=== PATIENT | male | born 1960 | race Hispanic/Latino ===

== ENCOUNTER 2018-03-07 15:44 | Emergency (ER) | payer OTHER ==
[2018-03-07 15:51] VITALS: RESP 18
[2018-03-07] MEDS ORDERED: Sodium Chloride 0.9% 1,000 ML IV STA (16:04)
[2018-03-07 16:43] LABS: BASO # 0.1 K/uL (0.0-0.2); BASO % 0.7 % (0.0-2.0); EOS # 0.1 K/uL (0.0-0.7); EOS % 1.7 % (0.0-4.0); HEMOGLOBIN 15.1 g/dL (12.0-18.0); LYMPH % 36.8 % (20.0-40.0); MEAN CORPUSCULAR HEMOGLOBIN 30.5 pg (27.0-31.0); MEAN CORPUSCULAR HGB CONC 33.5 g/dL (33.0-37.0); MEAN PLATELET VOLUME 9.8 fl (7.2-11.7); MONO # 0.7 K/uL (0.0-0.8); NEUT # 4.3 K/uL (1.8-7.0); NEUT % 52.8 % (50.0-75.0); RBC 4.94 Mil/uL (4.40-5.90); RED CELL DISTRIBUTION WIDTH 13.3 % (11.5-14.5); WHITE BLOOD COUNT 8.2 K/uL (4.8-10.8)
[2018-03-07 16:46] LABS: ALB/GLOB RATIO 1.3 (1.0-2.1); ALBUMIN 4.4 g/dL (3.5-5.0); ALT/SGPT 52 U/L (21-72); AST/SGOT 64 U/L (17-59); BLOOD UREA NITROGEN 23 mg/dl (9-20); CALCIUM 9.5 mg/dL (8.4-10.2); GFR AFRICAN-AMERICAN > 60; GFR NON-AFRICAN AMERICAN > 60; LIPASE 86 U/L (23-300)
[2018-03-07] MEDS ORDERED: Potassium Chloride 20 mEq ER Tab PO STA (16:52)
[2018-03-07 16:54] LABS: PARTIAL THROMBOPLASTIN TIME 30.2 Seconds (25.6-37.1); PROTHROMBIN TIME 11.1 Seconds (9.8-13.1)
--- NOTE | 2018-03-07 16:55 | ED PDOC ---
HPI: Abdomen Time Seen by Provider: 03/07/18 15:56 Chief Complaint (Nursing): Abdominal Pain Chief Complaint (Provider): Abdominal Pain History Per: Patient History/Exam Limitations: no limitations Onset/Duration Of Symptoms: Mins (x45) Current Symptoms Are (Timing): Gone Now Additional Complaint(s): 57 year old male with medical history of hypertension, presents to the emergency department with a complaint of right-sided abdominal pain status post eating leftover ham and eggs for lunch 45 minutes ago. He denies any nausea, vomiting, diarrhea, fever, chills, taking medication for relief, prior abdominal issues or surgery. Upon arrival to ED, he reports symptoms have resolved on its own but he still has residual sore throat and sweats. PMD: none provided Past Medical History Reviewed: Historical Data, Nursing Documentation, Vital Signs Vital Signs: Last Vital Signs Temp 98.6 F 03/07/18 18:03 Pulse 86 03/07/18 18:03 Resp 18 03/07/18 18:03 BP 123/82 03/07/18 18:03 Pulse Ox 98 03/07/18 18:03 - Medical History PMH: HTN - Surgical History Surgical History: Denies: No Surg Hx Other surgeries: left shoulder - Family History Family History: States: Hypertension - Social History Alcohol: None Drugs: Denies - Home Medications Home Medications: Ambulatory Orders Medication Instructions Recorded Acetaminophen with Codeine 1 tab PO Q6H PRN #10 tab 03/07/18 [Tylenol with Codeine No. 3 300 mg-30 mg] Ondansetron [Zofran Odt] 4 mg PO Q8H PRN #15 odt 03/07/18 - Allergies Allergies/Adverse Reactions: Allergies Allergy/AdvReac Type Severity Reaction Status Date / Time No Known Allergies Allergy Verified 03/07/18 15:48 Review of Systems ROS Statement: Except As Marked, All Systems Reviewed And Found Negative Constitutional: Positive for: Sweats. Negative for: Fever, Chills ENT: Positive for: Throat Pain Gastrointestinal: Positive for: Abdominal Pain (right-sided). Negative for: Nausea, Vomiting, Diarrhea Physical Exam - Reviewed Nursing Documentation Reviewed: Yes Vital Signs Reviewed: Yes - Physical Exam Appears: Positive for: Well, Non-toxic, No Acute Distress Head Exam: Positive for: ATRAUMATIC, NORMAL INSPECTION, NORMOCEPHALIC Skin: Positive for: Normal Color Eye Exam: Positive for: Normal appearance Cardiovascular/Chest: Positive for: Regular Rate, Rhythm, Chest Non Tender. Negative for: Murmur Respiratory: Positive for: Normal Breath Sounds. Negative for: Wheezing, Respiratory Distress Gastrointestinal/Abdominal: Positive for: Normal Exam, Soft. Negative for: Tenderness, Guarding, Rebound Back: Positive for: Normal Inspection. Negative for: L CVA Tenderness, R CVA Tenderness Extremity: Positive for: Normal ROM (upper/lower). Negative for: Pedal Edema ( bilateral) Neurologic/Psych: Positive for: Alert (x3), Oriented. Negative for: Motor/ Sensory Deficits - Laboratory Results Result Diagrams: 03/07/18 16:20 03/07/18 16:20 - ECG O2 Sat by Pulse Oximetry: 99 (RA) Pulse Ox Interpretation: Normal Medical Decision Making Medical Decision Making: Initial Impression: Abdominal pain Initial Plan: * EKG * CMP * Lipase * Troponin I * Urine dipstick * CBC * PTT * PT * Bentyl 20mg IM * NS 1,000ml IV per 125mls/hr * Zofran 4mg PO * UA * US ABD Accession No. : [id number] Patient Name / ID : MIGUEL [id number] / [id number] Exam Date : 03/07/2018 16:49:56 ( Approved ) Study Comment : Sex / Age : M / 57Y Creator : Adrian Rosado MD Dictator : Adrian Rosado MD Landscape Manager : Hand Leather Trimmer : Adrian Rosado MD Approver2 : Report Date : 03/07/2018 17:22:07 My Comment : HISTORY: Epigastric pain COMPARISON: None. TECHNIQUE: Sonographic evaluation of the abdomen. FINDINGS: LIVER: Measures 17.1 cm. Normal echogenicity of the liver parenchyma. No mass. No intrahepatic bile duct dilatation. GALLBLADDER: Gallbladder is only mildly distended with cholelithiasis identified within the lumen. No sonographic Nunez sign, appearing cholecystic fluid collection or mural nodularity. The wall thickness is limited evaluation due to inadequate distention. COMMON BILE DUCT: Measures 5.0 mm. No stones. No dilatation. PANCREAS: The tail of the pancreas is obscured by overlying bowel gas with remainder unremarkable. RIGHT KIDNEY: Measures 10.4cm. Normal echogenicity. No calculus, mass, or hydronephrosis. LEFT KIDNEY: Measures 11.5cm. Normal echogenicity. No calculus, mass, or hydronephrosis. SPLEEN: Normal in size and contour. No mass. AORTA: No aneurysmal dilatation. IVC: Unremarkable. OTHER FINDINGS: None. IMPRESSION: Cholelithiasis within an otherwise unremarkable appearing gallbladder. No biliary tree dilatation. Partial imaging of the pancreas due to overlying bowel gas. Scribe Attestation: Documented by Delores Kasper, acting as a scribe for Lynnette Melendrez MD. Provider Scribe Attestation: All medical record entries made by the Scribe were at my direction and personally dictated by me. I have reviewed the chart and agree that the record accurately reflects my personal performance of the history, physical exam, medical decision making, and the department course for this patient. I have also personally directed, reviewed, and agree with the discharge instructions and disposition. Disposition - Clinical Impression Clinical Impression: Cholelithiasis - Disposition Disposition: Routine/Home Disposition Time: 17:37 Condition: IMPROVED Additional Instructions: FOLLOW-UP WITH PMD/SURGERY WITHIN 2 DAYS FOR REEVALUATION. Prescriptions: Acetaminophen with Codeine [Tylenol with Codeine No. 3 300 mg-30 mg] 1 tab PO Q6H PRN #10 tab PRN Reason: Pain, Severe (8-10) Ondansetron [Zofran Odt] 4 mg PO Q8H PRN #15 odt PRN Reason: Nausea/Vomiting Instructions: Gallstones Forms: [facility] (Mongolian)
--- NOTE | 2018-03-07 17:23 | US ---
HISTORY: Epigastric pain COMPARISON: None. TECHNIQUE: Sonographic evaluation of the abdomen. FINDINGS: LIVER: Measures 17.1 cm. Normal echogenicity of the liver parenchyma. No mass. No intrahepatic bile duct dilatation. GALLBLADDER: Gallbladder is only mildly distended with cholelithiasis identified within the lumen. No sonographic Nunez sign, appearing cholecystic fluid collection or mural nodularity. The wall thickness is limited evaluation due to inadequate distention. COMMON BILE DUCT: Measures 5.0 mm. No stones. No dilatation. PANCREAS: The tail of the pancreas is obscured by overlying bowel gas with remainder unremarkable. RIGHT KIDNEY: Measures 10.4cm. Normal echogenicity. No calculus, mass, or hydronephrosis. LEFT KIDNEY: Measures 11.5cm. Normal echogenicity. No calculus, mass, or hydronephrosis. SPLEEN: Normal in size and contour. No mass. AORTA: No aneurysmal dilatation. IVC: Unremarkable. OTHER FINDINGS: None. IMPRESSION: Cholelithiasis within an otherwise unremarkable appearing gallbladder. No biliary tree dilatation. Partial imaging of the pancreas due to overlying bowel gas.
[2018-03-07 17:46] LABS: URINE BACTERIA RARE (<OCC); URINE BILIRUBIN NEGATIVE (NEGATIVE); URINE BLOOD NEGATIVE (NEGATIVE); URINE CLARITY SLIGHTY-CLOUDY (Clear); URINE COLOR YELLOW (YELLOW); URINE GLUCOSE (UA) NEG (Normal); URINE LEUKOCYTE ESTERASE NEG Leu/uL (Negative); URINE PROTEIN NEGATIVE (NEGATIVE)
[2018-03-07 18:05] VITALS: BP 123/82; PULSE 86; TEMP 98.6
--- NOTE | 2018-03-08 19:29 | CARD ---
APPROVED REPORT EKG Measurement Heart [id number] <Conclusion> Normal sinus rhythm Nonspecific T wave abnormality Abnormal ECG
[2018-03-14 07:31] VITALS: O2SAT 99
== END 2018-03-07 17:40 | disposition home or self-care (01) ==
LOC: H.ER 15:44
DX: K80.20 Calculus of gallbladder without cholecystitis without obstruction (principal); I10 Essential (primary) hypertension
CPT/HCPCS: 76700; 80053; 81003; 83690; 84484; 85025; 85610; 85730; 93005; 99282; J7040